=== PATIENT | female | born 1965 | race Hispanic/Latino ===

== ENCOUNTER 2022-12-21 11:14 | Emergency (ER) | payer OTHER ==
--- OUTSIDE RECORDS SUMMARY | 2022-12-21 11:16 | XMS REPORT | Continuity of Care Document ---
:1965 Author Organization [facility] t Address [address] [address] Care Team Providers Name Role Phone Unavailable Unavailable Unavailable Problems This patient has no known problems. Allergies, Adverse Reactions, Alerts This patient has no known allergies or adverse reactions. Medications This patient has no known medications. Procedures This patient has no known procedures. Encounters Start End Encounter Admission Attending Care Care Encounter Source Date/Time Date/Time Type Type Clinicians Facility Department ID 2022-04-23 2022-04-23 Outpatient [facility] ASHANTI [id number] Shashi 17:21:07 17:21:07 [id number] F [place] Results This patient has no known results.
[2022-12-21 11:49] LABS: Lymphocytes % 12.3 % (15.3-44.8); MCV 86.1 fL (80-100); Platelets 197 thou/uL (152-406); RBC Red Blood Cell Count 4.42 M/uL (3.86-4.86)
[2022-12-21 12:07] LABS: Albumin 3.8 g/dL (3.4-5.0); Bilirubin Total 0.6 mg/dL (0.2-1.0); Protein, Total 8.6 g/dL (6.4-8.2)
--- NOTE | 2022-12-21 12:55 | RAD REPORT ---
EXAM DESCRIPTION: CTAbdomen Pelvis W Contrast - 12/21/2022 12:47 pm CLINICAL HISTORY: Abdominal pain. ABD PAIN COMPARISON: No comparisons TECHNIQUE: Biphasic CT imaging of the abdomen and pelvis was performed with 100 ml non-ionic IV cont rast. All CT scans are performed using dose optimization technique as appropriate and may include automated exposure control or mA/KV adjustment according to patient size. FINDINGS: 3 mm nodule is present lateral left lung base. The lungs are otherwise clear. There are several small cysts scattered throughout the liver parenchyma. No aggressive liver lesion o r biliary dilatation. The spleen, pancreas, adrenal glands and kidneys are within normal limits. No bowel obstruction, free air, free fluid or abscess. The appendix is normal. No evidence of signi ficant lymphadenopathy. There is a 3.4 cm fatty mass in the right lower quadrant adnexal likely ovari an dermoid. No suspicious bony findings. 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
--- NOTE | 2022-12-21 13:08 | EDPHYS ---
Physician Documentation [facility] Name: Idalmis Cline Age: 57 yrs Sex: Female : 1965 Arrival Date: 12/21/2022 Time: 11:14 Bed 7 Private MD: ED Physician Samuel Love HPI: 12/21 13:08 This 57 yrs old Female presents to ER via Ambulatory with complaints of Flank ms3 Pain. 13:08 57-year-old female with no past medical history presents to the emergency department ms3 for left lower quadrant abdominal pain that began on Donnie. Patient states she took Advil with relief of her pain. Patient denies nausea, vomiting, diarrhea.. Historical: - Allergies: :25 No Known Allergies; hb - Home Meds: :25 None [Active]; hb - PMHx: :25 None; hb - PSHx: :25 None; hb - Immunization history:: Adult Immunizations up to date. - Social history:: Smoking status: Patient denies any tobacco usage or history of. ROS: 13:08 Constitutional: Negative for fever, and chills. ENT: Negative for injury, pain, and ms3 discharge, Neck: Negative for injury, pain, and swelling, Cardiovascular: Negative for chest pain, and palpitations. Respiratory: Negative for shortness of breath, cough, wheezing, and pleuritic chest pain, 13:08 MS/Extremity: Negative for injury and deformity, Skin: Negative for injury, rash, and discoloration, 13:08 Abdomen/GI: Positive for abdominal pain, Negative for nausea, vomiting, and diarrhea, 13:08 All other systems are negative, Exam: 13:08 Constitutional: This is a well developed, well nourished patient who is awake, alert, ms3 and in no acute distress. Head/Face: Normocephalic, atraumatic. Neck: Trachea midline, no cervical lymphadenopathy. Supple, full range of motion without nuchal rigidity, or vertebral point tenderness. No Meningismus. Chest/axilla: Normal chest wall appearance and motion. Nontender with no deformity. Cardiovascular: Regular rate and rhythm with a normal S1 and S2. No gallops, murmurs, or rubs. Normal PMI, no JVD. No pulse deficits. Respiratory: Lungs have equal breath sounds bilaterally, clear to auscultation and percussion. No rales, rhonchi or wheezes noted. No increased work of breathing, no retractions or nasal flaring. Abdomen/GI: Soft, non-tender, with normal bowel sounds. No distension or tympany. No guarding or rebound. No evidence of tenderness throughout. Skin: Warm, dry with normal turgor. Normal color with no rashes, no lesions, and no evidence of cellulitis. MS/ Extremity: Pulses equal, no cyanosis. Neurovascular intact. Full, normal range of motion. Vital Signs: 11:23 BP 135 / 83; Pulse 88; Resp 16; Temp 97.8(TE); Pulse Ox 100% on R/A; Weight 48.99 kg; hb Height 4 ft. 11 in. ; Pain 4/10; 11:35 BP 144 / 85; Pulse 86; Resp 17; Temp 99.4(O); Pulse Ox 100% ; Pain 0/10; tm6 11:40 BP 134 / 78; Pulse 86; Resp 18; Pulse Ox 100% on R/A; ld1 12:30 BP 115 / 65; Pulse 80; Resp 17; Pulse Ox 100% on R/A; tm6 11:23 Body Mass Index 21.81 (48.99 kg, 149.86 cm) hb 11:23 Pain Scale: Adult hb 11:35 Pain Scale: Adult tm6 MDM: 11:27 Patient medically screened. ms3 13:08 Differential diagnosis: nephrolithiasis, UTI, diverticulitis. Data reviewed: vital ms3 signs. I considered the following discharge prescriptions or medication management in the emergency department Medications were administered in the Emergency Department. See MAR. Counseling: I had a detailed discussion with the patient and/or guardian regarding the historical points, exam findings, and any diagnostic results supporting the discharge/admit diagnosis, lab results, radiology results, the need for outpatient follow up, to return to the emergency department if symptoms worsen or persist or if there are any questions or concerns that arise at home. Special discussion: Based on the patient's Hx, exam, and Dx evaluation, there is no indication for emergent surgery or inpatient Tx. It is understood by the patient/guardian that if the Sx's persist or worsen they need to return immediately for re-evaluation. ED course: Discussed labs, imaging with patient. Patient to follow-up with primary care physician in 2 to 3 days. Patient understands and agrees with plan. All questions were answered. Return precautions discussed include worsening symptoms, or any other concerns. 12/21 11:35 Order name: CBC with Diff; Complete Time: 12:55 ms3 12/21 11:35 Order name: CMP; Complete Time: 12:55 ms3 12/21 11:35 Order name: Lipase; Complete Time: 12:55 ms3 12/21 11:35 Order name: CT Abd/Pelvis - IV Contrast Only; Complete Time: 12:55 ms3 12/21 11:35 Order name: IV Saline Lock; Complete Time: 11:45 ms3 12/21 11:35 Order name: Labs collected and sent; Complete Time: :45 ms3 Administered Medications: 11:46 Drug: Famotidine IVP 20 mg IVP once; dilute with 10 mL 0.9% NaCl; give over 2 minutes tm6 Route: IVP; Site: right antecubital; Disposition Summary: 12/21/22 13:08 Discharge Ordered Notes: Location: Home ms3 Condition: Stable ms3 Diagnosis - Abdominal pain, unspecified ms3 - ovarian tumor ms3 Followup: ms3 - With: Jackelin Dior MD - When: 2 - 3 days - Reason: Recheck today's complaints Discharge Instructions: - Discharge Summary Sheet ms3 - Abdominal Pain, Adult ms3 Forms: - Medication Reconciliation Form ms3 - Thank You Letter ms3 - Antibiotic Education ms3 - Prescription Opioid Use ms3 - Patient Portal Instructions ms3 - Leadership Thank You Letter ms3 Signatures: Dispatcher [employer] Ginny Cartagena, RN Samuel Grove DO DO ms3 Simin Stokes RN RN tm6
--- NOTE | 2022-12-21 13:08 | ER ---
Nurse's Notes [facility] Name: Idalmis Cline Age: 57 yrs Sex: Female : 1965 Arrival Date: 12/21/2022 Time: 11:14 Bed 7 Private MD: Diagnosis: Abdominal pain, unspecified;ovarian tumor Presentation: 12/21 11:23 Chief complaint: Left lower abdominal pain x 4 days. Denies N/V/D/fever. Coronavirus hb screen: At this time, the client does not indicate any symptoms associated with coronavirus-19. Ebola Screen: No symptoms or risks identified at this time. Initial Sepsis Screen: Does the patient meet any 2 criteria? No. Patient's initial sepsis screen is negative. Does the patient have a suspected source of infection? No. Patient's initial sepsis screen is negative. Risk Assessment: Do you want to hurt yourself or someone else? Patient reports no desire to harm self or others. Onset of symptoms was December 18, 2022. 11:23 Method Of Arrival: Ambulatory hb 11:23 Acuity: JONATHAN 3 hb Historical: - Allergies: 11:25 No Known Allergies; hb - Home Meds: 11:25 None [Active]; hb - PMHx: 11:25 None; hb - PSHx: 11:25 None; hb - Immunization history:: Adult Immunizations up to date. - Social history:: Smoking status: Patient denies any tobacco usage or history of. Screenin:28 [facility] ED Fall Risk Assessment (Adult) History of falling in the last 3 months, tm6 including since admission No falls in past 3 months (0 pts). Abuse screen: Denies threats or abuse. Denies injuries from another. Nutritional screening: No deficits noted. Tuberculosis screening: No symptoms or risk factors identified. Assessment: 11:29 General: Appears in no apparent distress. Behavior is calm, cooperative. Neuro: Level tm6 of Consciousness is awake, alert, obeys commands, Oriented to person, place, time, situation. Cardiovascular: Capillary refill < 3 seconds Patient's skin is warm and dry. Respiratory: Airway is patent Respiratory effort is even, unlabored, Respiratory pattern is regular, symmetrical. : No signs and/or symptoms were reported regarding the genitourinary system. EENT: No signs and/or symptoms were reported regarding the EENT system. Derm: No signs and/or symptoms reported regarding the dermatologic system. Musculoskeletal: No signs and/or symptoms reported regarding the musculoskeletal system. 11:45 Pain: Denies pain. Complains of pain in left lower quadrant Is intermittent. GI: tm6 Abdomen is flat, non-distended, Abd is soft and non tender X 4 quads. 12:30 Reassessment: Patient appears in no apparent distress at this time. Patient and/or tm6 family updated on plan of care and expected duration. Pain level reassessed. Patient is alert, oriented x 3, equal unlabored respirations, skin warm/dry/pink. Vital Signs: 11:23 BP 135 / 83; Pulse 88; Resp 16; Temp 97.8(TE); Pulse Ox 100% on R/A; Weight 48.99 kg; hb Height 4 ft. 11 in. ; Pain 4/10; 11:35 BP 144 / 85; Pulse 86; Resp 17; Temp 99.4(O); Pulse Ox 100% ; Pain 0/10; tm6 11:40 BP 134 / 78; Pulse 86; Resp 18; Pulse Ox 100% on R/A; ld1 12:30 BP 115 / 65; Pulse 80; Resp 17; Pulse Ox 100% on R/A; tm6 11:23 Body Mass Index 21.81 (48.99 kg, 149.86 cm) hb 11:23 Pain Scale: Adult hb 11:35 Pain Scale: Adult tm6 ED Course: 11:16 Patient arrived in ED. rg4 11:16 Samuel Love DO is Attending Physician. ms3 11:25 Triage completed. hb 11:25 Arm band placed on. hb 11:26 Simin Stokes, RN is Primary Nurse. tm6 11:28 No provider procedures requiring assistance completed. tm6 11:45 Patient has correct armband on for positive identification. Bed in low position. Call tm6 light in reach. Side rails up X2. 11:46 Inserted saline lock: 20 gauge in right antecubital area, using aseptic technique. tm6 12:49 CT Abd/Pelvis - IV Contrast Only In Process Unspecified. EDMS 13:07 Jackelin Dior MD is Referral Physician. ms3 13:11 Provided Education on: plan of care. tm6 13:11 IV discontinued, intact, bleeding controlled, No redness/swelling at site. Pressure tm6 dressing applied. Administered Medications: 11:46 Drug: Famotidine IVP 20 mg IVP once; dilute with 10 mL 0.9% NaCl; give over 2 minutes tm6 Route: IVP; Site: right antecubital; Medication: 13:11 VIS not applicable for this client. tm6 Outcome: 13:08 Discharge ordered by . ms3 13:11 Discharged to home ambulatory, tm6 13:11 Condition: stable 13:11 Discharge instructions given to patient, Instructed on discharge instructions, follow up and referral plans. Demonstrated understanding of instructions, follow-up care, 13:22 Patient left the ED. tm6 Signatures: Dispatcher [employer] EDMS Ginny Paula, RN RN Tessa Horne rg4 Samuel Love, DO ms3 Yessica Love RN RN ld1 Simin Stokes RN RN tm6
[2022-12-21 14:05] VITALS: O2SAT 100
[2022-12-21 14:07] VITALS: TEMP 99.4
[2022-12-21 14:10] VITALS: BP 115/65
== END 2022-12-21 13:22 | disposition home or self-care (01) ==
LOC: ER 11:14 → SUPCPDRO 11:14 → ER 13:22
DX: N83.202 Unspecified ovarian cyst, left side (principal)
CPT/HCPCS: 85025; 36415; 83690; 80053; 74177; 96374; 99284; Q9967

== ENCOUNTER 2023-07-06 14:54 | Emergency (ER) | payer OTHER ==
--- OUTSIDE RECORDS SUMMARY | 2023-07-06 14:57 | XMS REPORT | Continuity of Care Document ---
Author Name Unknown Address [address] [facility]. [address] [place] [address] [facility] Address [address] [facility] [address] [place] [address] Care Team Providers Care Plumbing Inspector Name Role Phone Chepe Jara Attending Clinician Unavailable [email or web address] Attending Clinician Unavaila ble [email or web address] Admitting Clinician Unavaila ble Payers Payer Name Policy Type Policy Number Effective Date Expirati on Date Source [facility] [id number] Problems Condition Name Condition Details Condition Category Status Onset Date Resolution Date Last Treatment Date Treating Clinician Comments Source [id number] Mild episode of recurrent major depressive disorder Problem [facility] Social History Social Habit Start Date Stop Date Quantity Comments Source History of Tobacco Use [facility] Sex Assigned At [facility] Smoking Status Start Date Stop Date Source Never Smoker [facility] Medications Ordered Medication Name Filled Medication Name Start Date Stop Date Current Medication? Ordering Clinician Indication Dosage Frequency Signature (SIG) Comments Components Source Nitrofurant oin Monohyd Macro 100 MG Nitrofurant oin Monohyd Macro 100 MG 06-01 00:00: 00 No 1{capsu le_with _food} BID Nitrofuran toin Monohyd Macro 100 MG Naproxen 500 MG Naproxen 500 MG No BID Janieroxen 500 MG Naproxen 500 MG Naproxen 500 MG No BID Naproxen 500 MG Naproxen 500 MG Naproxen 500 MG No BID Naproxen 500 MG Vital Signs Vital Name Observation Time Observation Value Comments Salomon aguilar height 2023-06-07 08:20:00 59 [in_i] Commo n [facility] weight 2023-06-07 08:20:00 109.4 [lb_av] Co mmon [facility] temperature 2023-06-07 08:20:00 97.3 [degF] Com mon [facility] bmi 2023-06-07 08:20:00 22.09 kg/m2 Comm on [facility] oximetry 2023-06-07 08:20:00 100 % Commo n [facility] respiratory rate 2023-06-07 08:20:00 16 /min [facility] blood pressure systolic 2023-06-07 08:20:00 99 mm[Hg] [facility] blood pressure diastolic 2023-06-07 08:20:00 53 mm[Hg] Common [facility] height 2023-02-22 13:00:00 59 [in_i] Commo n [facility] weight 2023-02-22 13:00:00 110 [lb_av] Comm on [facility] 2023-02-22 13:00:00 22.21 kg/m2 Comm on [facility] height 2022-12-23 14:00:00 59 [in_i] Commo n [facility] weight 2022-12-23 14:00:00 107.8 [lb_av] Co mmon [facility] temperature 2022-12-23 14:00:00 98.0 [degF] Com mon [facility] bmi 2022-12-23 14:00:00 21.77 kg/m2 Comm on [facility] oximetry 2022-12-23 14:00:00 100 % Commo n [facility] respiratory rate 2022-12-23 14:00:00 16 /min Common [facility] blood pressure systolic 2022-12-23 14:00:00 105 mm[Hg] [facility] blood pressure diastolic 2022-12-23 14:00:00 58 mm[Hg] [facility] Encounters Start Date/Time End Date/Time Encounter Type Admission Type Attending [facility] Facility Care Department Encounter ID Source 2023-02-18 08:19:00 Outpatient Chepe Jara [facility] ST[facility] [id number] [facility] 2022-12-23 13:53:01 Outpatient Chepe Jara [facility] STL[facility] [id number] [facility] 2023-06-07 00:00:00 2023-06-07 00:00:00 OFFICE VISIT ESTAB PT LEVEL 3 [facility] [id number] [facility] 2023-06-02 00:00:00 2023-06-02 00:00:00 (TEL) [facility]C ST[facility] [id number] [facility] 2023-04-02 00:00:00 2023-04-02 00:00:00 Outpatient [email or web address] diyala_S PRIV PRIV [id number] [facility] 2023-02-22 00:00:00 2023-02-22 00:00:00 PREV VISIT EST AGE 40-64 STLMLC STLMLC [id number] [facility] 2022-12-28 00:00:00 2022-12-28 00:00:00 Outpatient [email or web address] diyala_S PRIV PRIV [id number] [facility] 2022-12-23 00:00:00 2022-12-23 00:00:00 OFFICE VISIT NEW PT LEVEL 4 [facility]LMLC STL[facility]C [id number] [facility] 2022-04-23 17:21:07 2022-04-23 17:21:07 Outpatient SFA SFA [id number] Shashi Trivedi
[2023-07-06] MEDS ORDERED: HYDROCODONE/APAP 5/325 MG TAB ONE (16:12)
--- NOTE | 2023-07-06 16:45 | RAD REPORT ---
EXAM DESCRIPTION: RAD - Foot Right 3 View - 07/06/2023 3:59 pm CLINICAL HISTORY: Right foot pain FINDINGS: No fracture or dislocation is seen Osteoporosis. No bony lesion visualized
--- NOTE | 2023-07-06 16:54 | ER ---
Nurse's Notes [facility] Name: Idalmis Cline Age: 58 yrs Sex: Female : 1965 Arrival Date: 07/06/2023 Time: 14:54 Bed 11 Private MD: Diagnosis: Contusion of left lesser toe(s) without damage to nail, initial encounter Presentation: 07/05 15:25 Chief complaint: Patient states: she has been having right pinky toe pain since Wednesday ap3 06/29/23. Coronavirus screen: At this time, the client does not indicate any symptoms associated with coronavirus-19. Ebola Screen: No symptoms or risks identified at this time. Initial Sepsis Screen: Does the patient meet any 2 criteria? No. Patient's initial sepsis screen is negative. Does the patient have a suspected source of infection? No. Patient's initial sepsis screen is negative. Risk Assessment: Do you want to hurt yourself or someone else? Patient reports no desire to harm self or others. Onset of symptoms was June 29, 2023. 15:25 Method Of Arrival: Ambulatory ap3 15:25 Acuity: JONATHAN 4 ap3 Triage Assessment: 15:26 General: Appears in no apparent distress. Behavior is calm, cooperative, appropriate ap3 for age. Pain: Complains of pain in right fifth toe. Neuro: Level of Consciousness is awake, alert, obeys commands, Oriented to person, place, time, situation. Cardiovascular: Patient's skin is warm and dry. Respiratory: Airway is patent Respiratory effort is even, unlabored, Respiratory pattern is regular, symmetrical. Historical: - Allergies: 15:26 No Known Allergies; ap3 - Home Meds: 15:26 None [Active]; ap3 - PMHx: 15:26 None; ap3 - Immunization history:: Client reports receiving the 2nd dose of the Covid vaccine. - Infectious Disease History:: Denies. - Social history:: Smoking status: Patient denies any tobacco usage or history of. Screenin:27 Abuse screen: Denies threats or abuse. Nutritional screening: No deficits noted. ap3 Tuberculosis screening: No symptoms or risk factors identified. Assessment: 16:19 General: Appears in no apparent distress. Behavior is calm, cooperative. Pain: iw Complains of pain in right foot and right fifth toe. Neuro: Level of Consciousness is awake, alert, obeys commands, Oriented to person, place, time, situation, Moves all extremities. Cardiovascular: Patient's skin is warm and dry. Respiratory: Respiratory effort is even, unlabored, Respiratory pattern is regular. Derm: Skin is intact, is healthy with good turgor. Musculoskeletal: Range of motion: limited in right fifth toe. Vital Signs: 15:25 BP 123 / 76; Pulse 71; Resp 17; Temp 97.7; Pulse Ox 100% ; Weight 48.99 kg; Height 4 ap3 ft. 11 in. ; 15:25 Body Mass Index 21.81 (48.99 kg, 149.86 cm) ap3 ED Course: 14:58 Patient arrived in ED. im 15:01 Wil Mckee PA is PHCP. cp 15:02 Milan Nascimento MD is Attending Physician. cp 15:26 Triage completed. ap3 15:27 Arm band placed on right wrist. ap3 15:34 Marta Lyle, CASEY is Primary Nurse. iw 16:00 XRAY Foot RIGHT 3 View In Process Unspecified. EDMS 16:20 No provider procedures requiring assistance completed. Patient did not have IV access iw during this emergency room visit. Administered Medications: 16:18 Drug: HYDROcodone-acetaminophen PO 5 mg-325 mg 1 tabs PO once Route: PO; iw 17:15 Follow up: Response: No adverse reaction iw Outcome: 16:54 Discharge ordered by . cp 17:48 Patient left the ED. iw Signatures: Dispatcher [employer] EDMS Marta Lyle RN RN iw Wil Mckee PA PA cp Prokisch, Amanda, RN RN ap3 Ankita Lambert im
--- NOTE | 2023-07-06 16:54 | EDPHYS ---
Physician Documentation [facility] Name: Idalmis Cline Age: 58 yrs Sex: Female : 1965 Arrival Date: 07/06/2023 Time: 14:54 Bed 11 Private MD: ED Physician Milan Nascimento HPI: 07/05 15:40 This 58 yrs old Female presents to ER via Ambulatory with complaints of Toe cp Injury - right. 15:40 The patient presents with an injury, pain, that is acute. The complaints affect the cp right fifth toe. Context: the patient can fully bear weight, the patient is able to ambulate, with mild difficulty, struck toe against furniture last week. 15:40 Onset: The symptoms/episode began/occurred last week. Associated signs and symptoms: cp The patient has no apparent associated signs or symptoms. Historical: - Allergies: 15:26 No Known Allergies; ap3 - Home Meds: 15:26 None [Active]; ap3 - PMHx: 15:26 None; ap3 - Immunization history:: Client reports receiving the 2nd dose of the Covid vaccine. - Infectious Disease History:: Denies. - Social history:: Smoking status: Patient denies any tobacco usage or history of. ROS: 15:45 Constitutional: HX per HPI cp Exam: 15:50 Constitutional: The patient appears in no acute distress, alert, awake, non-toxic, well cp developed, well nourished, 15:50 Head/Face: Normocephalic, atraumatic. cp 15:50 Musculoskeletal/extremity: Extremities: grossly normal except: noted in the right foot: pain and tenderness noted to right fifth toe, no deformity, toe neurovascular intact, ROM: full passive range of motion, in the right fifth toe, limited passive range of motion due to pain, in the right fifth toe, 15:50 Skin: cellulitis, is not appreciated, no rash present. Vital Signs: 15:25 BP 123 / 76; Pulse 71; Resp 17; Temp 97.7; Pulse Ox 100% ; Weight 48.99 kg; Height 4 ap3 ft. 11 in. ; 15:25 Body Mass Index 21.81 (48.99 kg, 149.86 cm) ap3 MDM: 15:19 Patient medically screened. cp 16:00 Differential diagnosis: fracture, sprain, cellulitis, contusion. cp 16:53 Data reviewed: vital signs, nurses notes, radiologic studies, plain films, and as a cp result, I will discharge patient. 16:53 I considered the following discharge prescriptions or medication management in the emergency department Medications were administered in the Emergency Department. See MAR. Counseling: I had a detailed discussion with the patient and/or guardian regarding the historical points, exam findings, and any diagnostic results supporting the discharge/admit diagnosis, radiology results, to return to the emergency department if symptoms worsen or persist or if there are any questions or concerns that arise at home. Response to treatment: the patient's symptoms have mildly improved after treatment, and as a result, I will discharge patient. 07/05 15:36 Order name: XRAY Foot RIGHT 3 View; Complete Time: 16:47 cp 07/05 16:47 Interpretation: Report reviewed. cp Administered Medications: 16:18 Drug: HYDROcodone-acetaminophen PO 5 mg-325 mg 1 tabs PO once Route: PO; iw 17:15 Follow up: Response: No adverse reaction iw Disposition: 07/06 07:04 Co-signature as Attending Physician, Milan Nascimento MD I reviewed the patient's care rn provided by the Advanced Practice Provider and agree with the diagnosis and treatment plan. Disposition Summary: 07/06/23 16:54 Discharge Ordered Notes: Location: Home cp Problem: new cp Symptoms: have improved cp Condition: Stable cp Diagnosis - Contusion of left lesser toe(s) without damage to nail, initial encounter cp Followup: cp - With: Private Physician - When: 2 - 3 days - Reason: Worsening of condition Discharge Instructions: - Discharge Summary Sheet cp - Foot Contusion cp - Form - Excuse from Work, School, or Physical Activity cp Forms: - Work release form cp - Medication Reconciliation Form cp - Antibiotic Education cp - Prescription Opioid Use cp - Patient Portal Instructions cp - Leadership Thank You Letter cp Prescriptions: - Diclofenac Sodium 75 mg Oral Tablet Sustained Release - take 1 tablet ORAL route 2 times per day; 30 tablet; Refills: 0, Product cp Selection Permitted Signatures: Dispatcher [employer] Marta Bautista RN RN iw Nieto, Roman, MD MD rn Page, Corey, PA PA cp Shannon Banegas RN RN ap3 Corrections: (The following items were deleted from the chart) 14:55 14:55 Constitutional: HX per HPI cp cp
[2023-07-06 18:13] VITALS: BP 123/76; TEMP 97.7; O2SAT 100
== END 2023-07-06 17:48 | disposition home or self-care (01) ==
LOC: ER 14:54
DX: S90.121A Contusion of right lesser toe(s) without damage to nail, initial encounter (principal)
CPT/HCPCS: 99282